=== PATIENT | female | born 2000 | race Caucasian/White ===

== ENCOUNTER → 2019-12-05 | Outpatient (CLI) | payer OTHER ==
[~2019-12-05] MED LIST: DICL50TA4 PO; ORPH-16 PO; TRAM50TA PO
== END | disposition home or self-care (01) ==
LOC: EEVIPCON 12:19 → LAB 12:19
PROVIDERS: ATTEND Internal Medicine Cardiovascular Disease
DX: R51 Headache (principal); R68.83 Chills (without fever); Z20.828 Contact with and (suspected) exposure to other viral communicable diseases
CPT/HCPCS: 87635

== ENCOUNTER 2020-01-21 21:39 | Emergency (ER) | payer OTHER ==
[~2020-01-21] VITALS: Ht 165.1 cm; Wt 72.0 kg
[2020-01-21 21:52] VITALS: BP 112/58
[2020-01-21] MEDS ORDERED: ACETAMINOPHEN 500 MG TABLET PO ONE (22:00)
[2020-01-21] MEDS ORDERED: FLUORESCEIN 1MG EYE STRIP. OD ONE (22:00)
[2020-01-21] MEDS ORDERED: ORPHENADRINE ER 100 MG TABLET.ER PO ONE (22:00)
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
[2020-01-21] MEDS ORDERED: TRAM50TA PO (22:58)
[2020-01-21] MEDS ORDERED: DICL50TA4 PO (22:58)
[2020-01-21] MEDS ORDERED: ORPH-16 PO (22:58)
[2020-01-21] MEDS ORDERED: CYCLOBENZAPRINE 10 MG TABLET. PO ONE (23:15)
== END 2020-01-21 23:31 | disposition home or self-care (01) ==
LOC: ER 21:39
DX: S16.1XXA Strain of muscle, fascia and tendon at neck level, initial encounter (principal); H57.11 Ocular pain, right eye; V89.2XXA Person injured in unspecified motor-vehicle accident, traffic, initial encounter; Y93.89 Activity, other specified; Y92.89 Other specified places as the place of occurrence of the external cause; Y99.8 Other external cause status
CPT/HCPCS: 70450; 70486; 99285-25

== ENCOUNTER → 2020-03-10 | Outpatient (CLI) | payer OTHER | END | disposition home or self-care (01) | LOC: LAB 07:16 | PROVIDERS: ATTEND Internal Medicine Cardiovascular Disease | DX: R05 Cough (principal); Z20.828 Contact with and (suspected) exposure to other viral communicable diseases | CPT/HCPCS: 36415; U0003 ==

== ENCOUNTER → 2020-03-16 | Outpatient (CLI) | payer OTHER | LOC: LAB 12:18 | PROVIDERS: ATTEND Internal Medicine Cardiovascular Disease | DX: R05 Cough (principal); R06.03 Acute respiratory distress; Z20.828 Contact with and (suspected) exposure to other viral communicable diseases | CPT/HCPCS: 36415; U0003 ==

== ENCOUNTER → 2020-03-25 | Outpatient (CLI) | payer OTHER | END | disposition home or self-care (01) | LOC: LAB 06:20 | PROVIDERS: ATTEND Internal Medicine Cardiovascular Disease | DX: R05 Cough (principal); R06.03 Acute respiratory distress; Z20.828 Contact with and (suspected) exposure to other viral communicable diseases | CPT/HCPCS: C9803; U0003; 36415 ==

== ENCOUNTER → 2020-04-29 | Outpatient (CLI) | payer OTHER | END | disposition home or self-care (01) | LOC: LAB 06:19 | PROVIDERS: ATTEND Internal Medicine Cardiovascular Disease | DX: Z20.828 Contact with and (suspected) exposure to other viral communicable diseases (principal) | CPT/HCPCS: U0003-CS ==